=== PATIENT | male | born 1970 | race Caucasian/White ===

== ENCOUNTER 2020-07-01 13:00 | Outpatient (RCR) | payer OTHER, SELFPAY ==
--- NOTE | 2020-06-18 14:13 | HP.PTEVAL_ITS ---
Patient's Visit Information PURNIMA TIJERINA is a 49 year old M referred to Physical Therapy by Dr. Huey Alberto MD with a diagnosis of Lumbar stenosis with neurogenic claudication. Date of Evaluation: 06/18/20 Physical Therapist: Brendan Larsen PT, Cert MDT, OCS - Visit Plan Frequency: 2-3x /Week Duration: 4-6 Weeks Plan: 3xs/week for 4 weeks per POC. PT Interventions: Postural training, LE strengthening, Core stabilization, Lumbar AROM, lifting/bending body mechanics for RTW,edurance/work conditioning - Subjective Patient is a 49 year old male presenting to the clinic s/p lumbar decompression surgery 05/23/2020 for lumbar stenosis and herniated dics. Hx of chronic back issue. Reports he had R sided LBP with radicular symptoms into B LE. R LE symptoms go all the way down to the ball of the feet; L LE down to thigh. Hx of cortisone injections; reports they did not help. Patient states that he is doing well after surgery. Previously been to PT his back. Aggravting factors: bending forward, twisting, sleeping, walking, standing. Patient states he only stands for the amount of time he needs; puts chair in kitchen. Ice helps. Denies any numbness and tingling into LE; states he had it before surgery. Hx: meniscal repair on R knee, abd hernia. Vocation: [employer]; can't return to work until he can lift 100#. Social: Lives alone - Pain Right Back Pain Intensity (Out of 10): 3 Pain Intensity Range: 10 Comment: Pain ranges from 3-5; Right sided back pain into R LE. - Objective Observation: Incision WNL. Palpation: TTP around incision, no TTP in B paraspinals. Sensation: Intact to light touch in B LE. Posture: Increased lumbar lordosis. Lumbar AROM: Flexion 50%, ext 75%, R sidebending 75%, L sidebending 75%, R rotation 50%, L rotation 50%. LE MMT: R hip flexion 4+/5, quad 5/5, ham 5/5, DF 5/5, PF. L hip flexion 4+/5, quad 5/5, ham 5/5, DF 5/5, PF 5/5. 90/90: moderate limitation bilaterally - Special Tests L/S Left Straight Leg Raise: Negative L/S Right Straight Leg Raise: Positive - Goals Goal 1:: Patient will demonstrate independence with HEP. Goal Time Frame: 4-6 Weeks Goal 2:: Patient will demonstrate 5/5 LE strength for improved functional strength and RTW. Goal Time Frame: 4-6 Weeks Goal 3:: Patient will demonstrate good bending and lifting body mechanics for return to work and decrease risk of injury. Goal Time Frame: 4-6 Weeks Goal 4:: Patient will demonstrate improved lumbar AROM to less than 75% limitation for improved functional mobility. Goal Time Frame: 4-6 Weeks Goal 5:: Patient will improve Oswestry (back) score by 5 or > points for improved QOL. Goal Time Frame: 4-6 Weeks - Rehabilitation Potential Physical Therapy Diagnosis: Patient is a 49 year old male presenting to the clinic s/p lumbar decompression surgery on 05/23/2020. Patient presents with deconditioning to RTW, LE and core weakness, decreased lumbar AROM. Rehabilitation Potential: Good - Anticipated Interventions Patient/Client Instruction: Educate patient on: Condition, Plan of Care For the Purpose of:: To decrease pain, To increase ROM, To improve muscle performance and motor function, To improve ability to perform ADL's, To increase tolerance to activity/condition/position, To improve performance and independence with ADL's, To improve ability of physical actions for home/community/work/leisure, To increase flexibility/ROM, To improve endurance, To improve health and function, To improve self management, To improve ability to perform tasks related to life management, To improve tolerance to ADL's Therapeutic Exercise to Include: Strength training, Endurance training, Body mechanics, Postural training, Flexibilty training, Active ROM Comment: LE strength, core stabilization, lifting/bending body mechanics For the Purpose of:: To decrease pain, To decrease swelling/inflammation, To improve muscle performance and motor function, To improve ability to perform ADL's, To increase tolerance to activity/condition/position, To improve perform ance and independence with ADL's, To improve ability of physical actions for home/community/work/leisure, To increase flexibility/ROM, To improve endurance, To improve health and function, To improve self management, To improve ability to perform tasks related to life management, To improve tolerance to ADL's IF ES: Yes Other electric stimulation: Yes Cryotherapy (ice pack, ice massage): Yes Thermo therapy (hot pack): Yes For the Purpose of:: To decrease pain, To increase ROM, To improve muscle performance and motor function, To improve ability to perform ADL's, To increase tolerance to activity/condition/position, To improve performance and independence with ADL's, To improve ability of physical actions for home/community/work/leisure, To improve health of tissue, To increase flexibility/ROM, To improve endurance, To improve health and function, To improve self management, To improve ability to perform tasks related to life management, To improve tolerance to ADL's Thank you for the opportunity to evaluate your patient. For Medicare and Medicare HMO plans, please review the plan of care and approve it. It will need to be FAXED BACK to us at [phone] for Medicare purposes. For Medicare only, by signing this I certify the plan of care. Please let me know if there are questions or concerns regarding this plan of care. Physician Signature: Date:
--- NOTE | 2020-12-17 13:27 | HP.PT.NRP ---
PURNIMA TIJERINA was seen in my office for initial evaluation on 06/18/20. The following Plan of Care was established for this patient: Initial Frequency: 2-3x /Week Initial Duration: 4-6 Weeks Patient/Client Instruction: Educate patient on: Condition, Plan of Care For the Purpose of:: To decrease pain, To increase ROM, To improve muscle performance and motor function, To improve ability to perform ADL's, To increase tolerance to activity/condition/position, To improve performance and independence with ADL's, To improve ability of physical actions for home/community/work/leisure, To increase flexibility/ROM, To improve endurance, To improve health and function, To improve self management, To improve ability to perform tasks related to life management, To improve tolerance to ADL's Therapeutic Exercise to Include: Strength training, Endurance training, Body mechanics, Postural training, Flexibilty training, Active ROM For the Purpose of:: To decrease pain, To decrease swelling/inflammation, To improve muscle performance and motor function, To improve ability to perform ADL's, To increase tolerance to activity/condition/position, To improve performance and independence with ADL's, To improve ability of physical actions for home/community/work/leisure, To increase flexibility/ROM, To improve endurance, To improve health and function, To improve self management, To improve ability to perform tasks related to life management, To improve tolerance to ADL's IF ES: Yes Other electric stimulation: Yes Cryotherapy (ice pack, ice massage): Yes Thermo therapy (hot pack): Yes For the Purpose of:: To decrease pain, To increase ROM, To improve muscle performance and motor function, To improve ability to perform ADL's, To increase tolerance to activity/condition/position, To improve performance and independence with ADL's, To improve ability of physical actions for home/community/work/leisure, To improve health of tissue, To increase flexibility/ROM, To improve endurance, To improve health and function, To improve self management, To improve ability to perform tasks related to life management, To improve tolerance to ADL's This patient was last seen in our office . Pertinent comments regarding their Physical therapy will appear below: This patient seen for PT for lumbar stenosis for lumbar flexion, DLS ,postural ex's ,ex's are helping some. At this point I will be discontinuing this patient from physical therapy. I would be happy to see this patient again in the future if found appropriate by the physician. Thank you! Brendan Larsen, PT, Cert MDT, OCS Balance/Gait/Functional tests - Balance/Special Test Scores Oswestry Low Back Score: 6
== END 2020-07-01 19:00 | disposition home or self-care (01) ==
LOC: PT 13:00
PROVIDERS: PCP Family Medicine; Referring Provider Neurological Surgery; Visit Provider Neurological Surgery
DX: M48.062 Spinal stenosis, lumbar region with neurogenic claudication (principal)
CPT/HCPCS: 97032; 97110; 97161